=== PATIENT | female | born 1950 | race Caucasian/White ===

== ENCOUNTER 2024-10-04 12:51 | Emergency (ER) | payer MEDICARE, SELFPAY ==
--- NOTE | ~2024-10-04 | XR_ITS ---
EXAMINATION: XR lumbar spine 2-3V DATE: 10/04/2024 13:44 INDICATION: Low back pain. Fall. TECHNIQUE: 3 views of lumbar spine were obtained. COMPARISON: CT abdomen and pelvis 08/08/2019 FINDINGS: There is 7 degrees levocurvature of thoracolumbar spine. Vertebral body heights are normal. There is a compression fracture of L2 with 2/5 loss of height. Intervertebral disc heights are fish l. There are endplate osteophytes at all levels. There is multilevel severe facet joint osteoarthriti s. IMPRESSION: 1. Age-indeterminate L2 compression fracture, new from 08/08/2019. 2. Mild lumbar spondylosis. Reviewed, dictated and finalized at location [facility]
[2024-10-04 13:01] VITALS: BP 132/63; PULSE 69; RESP 16; TEMP 36.2; O2SAT 99
--- NOTE | 2024-10-04 13:47 | ED.FALL ---
HPI - Fall General Chief Complaint: Fall Stated Complaint: Fall Time Seen by Provider: 10/04/24 13:27 Source: patient, RN notes reviewed and old records reviewed Mode of arrival: ambulatory Limitations: no limitations History of Present Illness HPI Narrative: 74-year-old female to Express Care with complaint of lower back pain. patient states that she fell off of a step stool last night at home. Patient states she was 2 steps on a ladder when she lost her balance and fell backwards onto her bottom. Patient reports history of spinal stenosis, arthritis, and bulging discs. Patient has attempted to treat at home with Tylenol with little relief, last dose was at 10:30 a.m. this morning. Patient denies saddle anesthesia, urinary or bowel incontinence fresh changes, numbness, tingling, weakness. Patient resting comfortably in exam room in no acute distress. Respirations even and nonlabored. Related Data Home Medications Medication Instructions Recorded Confirmed Caltrate 600 1,500 mg DAILY 10/04/24 10/04/24 Fish Oil 500 mg DAILY 10/04/24 10/04/24 alendronate 70 mg tablet 70 mg PO WEEKLY 10/04/24 10/04/24 allopurinol 300 mg tablet 300 mg DAILY 10/04/24 10/04/24 aspirin 81 mg DAILY 10/04/24 10/04/24 benazepril 5 mg tablet 5 mg DAILY 10/04/24 10/04/24 d-mannose 500 mg BID 10/04/24 10/04/24 estradiol 0.01% (0.1 mg/gram) 1 g vaginal 3XW 10/04/24 10/04/24 vaginal cream glimepiride 4 mg tablet 4 mg DAILY 10/04/24 10/04/24 metformin 1,000 mg tablet 1,000 mg BID 10/04/24 10/04/24 metoprolol tartrate 25 mg tablet 25 mg BID 10/04/24 10/04/24 pioglitazone 30 mg tablet 30 mg DAILY 10/04/24 10/04/24 triamterene 37.5 0.5 tablet DAILY 10/04/24 10/04/24 mg-hydrochlorothiazide 25 mg tablet Allergies Allergy/AdvReac Type Severity Reaction Status Date / Time amoxicillin Allergy Swelling Verified 10/04/24 13:11 Review of Systems Review of Systems: All systems reviewed & are unremarkable except as noted in HPI and below Constitutional: Constitutional: Reports no additional constitutional complaints Eyes: Eyes: Reports no additional eye complaints ENT: Reports system reviewed and no additional complaints, except as documented Cardiovascular: Cardiovascular: Reports no additional cardiovascular complaints, Denies chest pain and Denies dyspnea Respiratory: Respiratory: Reports no additional respiratory complaints, Denies cough and Denies dyspnea Musculoskeletal: Musculoskeletal: Reports as per HPI and Reports back pain Neurologic: Reports system reviewed and no additional complaints, except as documented Psychiatric: Psychiatric: Reports no additional psychiatric complaints PMFSH Comments At the time of my signature, I reviewed and agree with the nursing past medical, surgical, social, and family history. There is no relevant family history pertinent to the patient complaint. Exam Const: General: cooperative, healthy appearing, no acute distress, alert, uncomfortable and well nourished Nutritional Appearance: well nourished Orientation/consciousness: patient oriented x3 Limitations: no limitations HENMT: Head: normal to inspection Ears: external ears normal Face/Nose/Sinus: Normal external nose present, Normal nares present, normal facial exam, No erythema and No edema Face and sinus: normal facial exam, no erythema and no edema Mouth: Yes Normal oral and palatal mucosa present Eyes: General: appearance normal, both eyes and all related structures Neck: Neck: normal visual inspection, full ROM and no meningeal signs Lymphatic: no lymphadenopathy noted and no lymphedema noted Chest: Chest palpation & inspection: normal inspection of the chest Resp: Effort & Inspection: normal respiratory effort and able to speak in complete sentences Auscultation: clear to auscultation bilaterally Cardio: Jugular venous distension: no JVD Rate: regular rate Rhythm: regular rhythm Back/Spine/Pelvis: Cervical Spine: cervical ROM normal Skin: General skin exam: normal color, no rashes or lesions noted and turgor normal Neuro: General: patient oriented x3, gait normal, moves all extremities and no meningeal signs Speech: normal speech Gait exam (Neuro): Normal gait present Extrem: General: normal to inspection, full ROM and capillary refill normal Psych: Appearance: grossly normal and well kempt Course Course Emergency Course: Some parts of this dictation were generated by voice recognition software and may contain typographical and/or grammatical inaccuracies. Level of Care: Express Care Visit Vital Signs Vital signs: Vital Signs Temperature 36.2 C L 10/04/24 13:01 Pulse Rate 69 10/04/24 13:01 Respiratory Rate 16 10/04/24 13:01 Blood Pressure 132/63 10/04/24 13:01 Pulse Oximetry 99 10/04/24 13:01 Oxygen Delivery Room Air 10/04/24 13:01 Temperature 36.2 C L 10/04/24 13:01 Pulse Rate 69 10/04/24 13:01 Respiratory Rate 16 10/04/24 13:01 Blood Pressure 132/63 10/04/24 13:01 Pulse Oximetry 99 10/04/24 13:01 Oxygen Delivery Room Air 10/04/24 13:01 reviewed MDM - Fall MDM Narrative Medical decision making narrative: 74-year-old female to Express Care with complaint of lower back pain. patient states that she fell off of a step stool last night at home. Patient states she was 2 steps on a ladder when she lost her balance and fell backwards onto her bottom. Patient reports history of spinal stenosis, arthritis, and bulging discs. Patient has attempted to treat at home with Tylenol with little relief, last dose was at 10:30 a.m. this morning. Patient denies saddle anesthesia, urinary or bowel incontinence fresh changes, numbness, tingling, weakness. Patient resting comfortably in exam room in no acute distress. Respirations even and nonlabored. Radiology findings: Age-indeterminate L2 compression fracture, new from 08/08/2019. Mild lumbar spondylosis. Patient is sitting uncomfortably in exam room nontoxic in appearance. Patient appropriate for outpatient treatment and follow-up. Discharge instructions reviewed with patient, as well as provided in writing per nursing staff. The instructions also include specific and strict return/GO TO THE ER as well as f/u information. All questions have been answered, and the patient deny any further questions with discharge and discharge plan. Some parts of this dictation were generated by voice recognition software and may contain typographical and/or grammatical inaccuracies. Differential Diagnosis Differential diagnosis: Likely syncope, dislocation of shoulder region, fracture of wrist, compression fracture, concussion with loss of consciousness and concussion without loss of consciousness Imaging Data Radiologist's impression: EXAMINATION: XR lumbar spine 2-3V DATE: 10/04/2024 13:44 INDICATION: Low back pain. Fall. TECHNIQUE: 3 views of lumbar spine were obtained. COMPARISON: CT abdomen and pelvis 08/08/2019 FINDINGS: There is 7 degrees levocurvature of thoracolumbar spine. Vertebral body heights are normal. There is a compression fracture of L2 with 2/5 loss of height. Intervertebral disc heights are normal. There are endplate osteophytes at all levels. There is multilevel severe facet joint osteoarthritis. IMPRESSION: 1. Age-indeterminate L2 compression fracture, new from 08/08/2019. 2. Mild lumbar spondylosis. Discharge Plan Discharge Clinical Impression: Compression fracture of L2 Patient Disposition: Home, Self-Care Condition: Stable Instructions: Vertebral Compression Fracture (ED) Additional Instructions: please review attached instructions regarding vertebral compression fracture and implement suggestions as tolerated please use attached referral information to follow up with Neurosurgery for new or worsening symptoms go directly to the emergency department Prescriptions: New hydrocodone-acetaminophen 5-325 mg tablet 1 tablet PO Q8H PRN (Reason: pain) Qty: 10 0RF No Action benazepril 5 mg tablet 5 mg DAILY alendronate 70 mg tablet 70 mg PO WEEKLY metformin 1,000 mg tablet 1,000 mg BID glimepiride 4 mg tablet 4 mg DAILY triamterene-hydrochlorothiazid 37.5-25 mg tablet 0.5 tablet DAILY allopurinol 300 mg tablet 300 mg DAILY estradiol 0.01 % (0.1 mg/gram) cream 1 g VAGINAL 3XW pioglitazone 30 mg tablet 30 mg DAILY metoprolol tartrate 25 mg tablet 25 mg BID Caltrate 600 1,500 mg DAILY Fish Oil 500 mg DAILY aspirin 81 mg DAILY d-mannose 500 mg BID Follow-up/Referrals: Darrion Kinsey MD [Physician] - [place],Ella Choudhary [Primary Care Provider] - Nella Boyce MD [Physician] -
== END 2024-10-04 15:02 | disposition home or self-care (01) ==
PROVIDERS: Emergency Provider Nurse Practitioner Family; PCP Nurse Practitioner
DX: S32.029A Unspecified fracture of second lumbar vertebra, initial encounter for closed fracture (principal); W17.89XA Other fall from one level to another, initial encounter; M19.90 Unspecified osteoarthritis, unspecified site
CPT/HCPCS: 72100; 99203; G0463